=== PATIENT | female | born 1945 | race Caucasian/White ===

== ENCOUNTER 2018-09-04 06:30 | Day surgery (SDC) | payer MEDICARE, OTHER, MEDICAID ==
[2018-09-04] MEDS ORDERED: PROPOFOL 40 ML (07:06)
[2018-09-04] MEDS ORDERED: LIDOCAINE 100 MG SYRINGE (07:06)
== END 2018-09-04 11:44 | disposition home or self-care (01) ==
LOC: GIL 06:30
DX: R19.4 Change in bowel habit (principal); K57.30 Diverticulosis of large intestine without perforation or abscess without bleeding; K44.9 Diaphragmatic hernia without obstruction or gangrene; K20.8 Other esophagitis; K29.50 Unspecified chronic gastritis without bleeding; I10 Essential (primary) hypertension; E11.9 Type 2 diabetes mellitus without complications; E78.5 Hyperlipidemia, unspecified; Z79.84 Long term (current) use of oral hypoglycemic drugs
CPT/HCPCS: 43239; 82962; 88305; 88312; 88313